=== PATIENT | female | born 1935 | race Caucasian/White ===

== ENCOUNTER 2016-09-25 17:46 | Inpatient (IN) | payer MEDICARE, OTHER ==
[~2016-09-25] VITALS: Ht 152.4 cm; Wt 53.4 kg
[2016-09-25] MEDS ORDERED: ONDANSETRON 4 MG INJ IV STA (17:51)
[2016-09-25] MEDS ORDERED: SOD CHLORIDE 0.9% 1,000 ML IV STA (17:51)
[2016-09-25 18:06] LABS: ADD SCAN DIFF NO
[2016-09-25 18:08] LABS: BASOPHILS % 0.5 % (0.0-2.0); EOSINOPHILS # 0.2 10^3/ul (0.0-0.5); EOSINOPHILS % 2.3 % (0.0-7.0); HEMATOCRIT 41.9 % (37.0-47.0); HEMOGLOBIN 13.5 g/dl (12.0-16.0); LYMPHOCYTES # 2.5 10^3/ul (0.8-2.9); LYMPHOCYTES % 29.7 % (15.0-51.0); MEAN CORPUSCULAR HEMOGLOBIN 29.1 pg (29.0-33.0); MEAN CORPUSCULAR HGB CONC 32.2 g/dl (32.0-37.0); MEAN CORPUSCULAR VOLUME 90.3 fl (82.0-101.0); MEAN PLATELET VOLUME 9.1 fl (7.4-10.4); MONOCYTE # 0.8 10^3/ul (0.3-0.9); MONOCYTES % 9.5 % (0.0-11.0); NEUTROPHIL # 4.9 10^3/ul (1.6-7.5); NEUTROPHILS % 57.6 % (39.0-77.0); PLATELET COUNT 322 10^3/UL (140-415); RED BLOOD COUNT 4.64 10^6/ul (4.20-5.40); RED CELL DISTRIBUTION WIDTH 13.7 % (11.5-14.5); WHITE BLOOD COUNT 8.6 10^3/ul (4.8-10.8)
[2016-09-25 18:23] LABS: ALBUMIN 4.4 g/dl (3.3-4.9); CHLORIDE 97 mmol/L (97-110)
[2016-09-25 18:24] LABS: POTASSIUM 4.1 mmol/L (3.5-5.1); SODIUM 137 mmol/L (135-144)
[2016-09-25 18:26] LABS: ALANINE AMINOTRANSFERASE 21 IU/L (13-69); ALKALINE PHOSPHATASE 60 IU/L (42-121); ANION GAP 17 (8-16); ASPARTATE AMINO TRANSFERASE 33 IU/L (15-46); BILIRUBIN,INDIRECT 0.1 mg/dl (0-1.1); BILIRUBIN,TOTAL 0.1 mg/dl (0.2-1.3); BLOOD UREA NITROGEN 29 mg/dl (7-20); CARBON DIOXIDE 27 mmol/L (21-31); CREATININE 0.98 mg/dl (0.44-1.00); GLUCOSE 87 mg/dl (70-220); TOTAL PROTEIN 8.8 g/dl (6.1-8.1)
[2016-09-25 18:27] LABS: CALCIUM 9.8 mg/dl (8.4-10.2)
[2016-09-25] MEDS ORDERED: DEXTROSE 50% 50 ML SYRINGE ONE (18:38)
[2016-09-25 18:59] LABS: TROPONIN-I < 0.012 ng/ml (0.00-0.12)
[2016-09-25] MEDS ORDERED: DEXTROSE 50% 50 ML SYRINGE IV ONE ×2 (19:00→21:00)
[2016-09-25] MEDS ORDERED: DEXTROSE 5%-0.9% NACL 1,000 ML IV SCH (21:00)
[2016-09-25] MEDS ORDERED: ACETAMINOPHEN 325 MG TAB PO PRN (21:30)
[2016-09-25] MEDS ORDERED: ONDANSETRON 4 MG INJ IV PRN (21:30)
--- NOTE | 2016-09-25 23:00 | ERA ---
ER Documentation Chief Complaint Date/Time DATE: 09/25/16 TIME: 22:52 Chief Complaint HYPOGLYCEMIA AT HOME ~ 30'S; ALOC HPI 81-year-old female presents for acute altered mental status. The patient was more weak than usual and seemed more demented than usual according to her adult daycare center called her sister. She was transferred to the ER for evaluation. Paramedics checked her sugar and it was in the 30s and Route. They did give her IV dextrose. Patient was initially answering questions well in the emergency room. She stated that she did not remember what happened but she had felt fine earlier in the day. She denied any pain or nausea. Bedside [employer] packaging sales was used. Patient is not diabetic according to her and her family. She does not take any medications that might lower her sugar. ROS All systems reviewed and are negative except as per history of present illness. PMhx/Soc History of Surgery: No Anesthesia Reaction: No Hx Neurological Disorder: No Hx Respiratory Disorders: No Hx Cardiac Disorders: No Hx Psychiatric Problems: No Hx Miscellaneous Medical Probl: No Hx Alcohol Use: No Hx Substance Use: No Hx Tobacco Use: No Smoking Status: Never smoker Physical Exam Vitals Vital Signs Date Time Temp Pulse Resp B/P Pulse Ox O2 Delivery O2 Flow Rate FiO2 09/25/16 17:49 97.7 103 18 159/84 98 Physical Exam Const: [] Mild distress, appears slightly confused. Head: Atraumatic Eyes: Normal Conjunctiva ENT: Normal External Ears, Nose and Mouth. Neck: Full range of motion..~ No meningismus. Resp: Clear to auscultation bilaterally Cardio: Regular while tachycardia no murmurs Abd: Soft, non tender, non distended. Normal bowel sounds Skin: No petechiae or rashes Back: No midline or flank tenderness Ext: No cyanosis, or edema Neur: Awake and alert and oriented 2, uncertain of day or month, cranial nerves II through XII intact, cerebellar finger to nose intact. Gait not tested Psych: Normal Mood and Affect Result Diagram: 09/25/16 1740 09/25/16 1740 Results 24 hrs Laboratory Tests Test 09/25/16 17:40 09/25/16 18:34 09/25/16 18:36 09/25/16 19:05 White Blood Count 8.610^3/ul Red Blood Count 4.6410^6/ul Hemoglobin 13.5g/dl Hematocrit 41.9% Mean Corpuscular Volume 90.3fl Mean Corpuscular Hemoglobin 29.1pg Mean Corpuscular Hemoglobin Concent 32.2g/dl Red Cell Distribution Width 13.7% Platelet Count 24987^3/UL Mean Platelet Volume 9.1fl Neutrophils % 57.6% Lymphocytes % 29.7% Monocytes % 9.5% Eosinophils % 2.3% Basophils % 0.5% Nucleated Red Blood Cells % 0.0/100WBC Neutrophils # 4.910^3/ul Lymphocytes # 2.510^3/ul Monocytes # 0.810^3/ul Eosinophils # 0.210^3/ul Basophils # 0.010^3/ul Nucleated Red Blood Cells # 0.010^3/ul Sodium Level 137mmol/L Potassium Level 4.1mmol/L Chloride Level 97mmol/L Carbon Dioxide Level 27mmol/L Anion Gap 17 Blood Urea Nitrogen 29mg/dl Creatinine 0.98mg/dl Glucose Level 87mg/dl Calcium Level 9.8mg/dl Total Bilirubin 0.1mg/dl Direct Bilirubin 0.00mg/dl Indirect Bilirubin 0.1mg/dl Aspartate Amino Transf (AST/SGOT) 33IU/L Alanine Aminotransferase (ALT/SGPT) 21IU/L Alkaline Phosphatase 60IU/L Troponin I < 0.012ng/ml Total Protein 8.8g/dl Albumin 4.4g/dl Globulin 4.40g/dl Albumin/Globulin Ratio 1.00 Lipase 283U/L Bedside Glucose 27mg/dL 30mg/dL 127mg/dL Test 09/25/16 20:52 09/25/16 21:42 Bedside Glucose 38mg/dL 141mg/dL Current Medications Medications (Trade) Dose Ordered Sig/Joan Route PRN Reason Start Time Stop Time Status Last Admin Dose Admin Sodium Chloride (NS) 1,000 ml @ 1,000 mls/hr Q1H STAT IV 09/25/16 17:51 09/25/16 18:50 DC 09/25/16 18:10 Ondansetron HCl (Zofran Inj) 4 mg ONCE STAT IV 09/25/16 17:51 09/25/16 17:53 DC 09/25/16 18:10 Dextrose (D50w Syringe) 50 ml ONCE ONCE IV 09/25/16 19:00 09/25/16 19:01 DC 09/25/16 18:41 Dextrose (D50w Syringe) 50 ml STK-MED ONCE .ROUTE 09/25/16 18:38 09/25/16 18:39 DC Dextrose 50 ml 50 ml ONCE ONCE IV 09/25/16 21:00 09/25/16 21:01 DC 09/25/16 20:57 Dextrose/Sodium Chloride (D5-NS) 1,000 ml @ 150 mls/hr Q6H40M IV 09/25/16 21:00 09/25/16 21:06 Ondansetron HCl (Zofran Inj) 4 mg ER BRIDGE PRN IV NAUSEA AND/OR VOMITING 09/25/16 21:30 09/26/16 21:29 Acetaminophen (Tylenol Tab) 650 mg ER BRIDGE PRN PO MILD PAIN/FEVER 09/25/16 21:30 09/26/16 21:29 Procedures/MDM Idiopathic refractory hypoglycemia. Patient sugar continued to drop to dangerous levels in spite of not being any sugar lowering medications. After patient arrived mental status that improved. It did decrease and her sugar had dropped again into the 30s. She was given amp of D50 and her sugar was carefully monitored. She was again quickly dropped in the 30s at which point she was given another amp of D50 and D5 normal saline infusion was started. She is vital signs initially unstable of otherwise stabilized. At this point there is concern for other sugar lowering processes such as possible insulinoma or other. No signs of acute infection yet. Urine has not been obtained. This point sugar is been holding stable although the patient needs to be admitted and closely monitored and do not believe she needs intensive care unit currently. Spoke with Dr. Manuel who will be admitting the patient and agrees with telemetry. EKG interpretation: Sinus tachycardia rate of 103, normal axis, no ST-T wave changes concerning for acute ischemia. Normal EKG except for increased rate. burr mill operator interpretation: Initial sinus tachycardia followed by normal sinus rhythm without arrhythmia Critical care time 33 minutes: This includes treatment of refractory hypoglycemia with extremely low sugars, is a multiple doses of dextrose to maintain adequate blood sugar to preserve life and brain function, use of D5 drip, multiple visits patient's bedside reassess her neuro status, chart review , discussion with admitting doctor discussion with family. This does not include any billable procedures Departure Diagnosis: Primary Impression: Hypoglycemia Additional Impression: Altered mental status Condition: Serious SALLY FUCHS DO Sep 25, 2016 23:00
[2016-09-25 23:24] LABS: URINE BLOOD (Dip) POC Negative (NEGATIVE)
[2016-09-25 23:48] VITALS: Ht 152.4 cm; Wt 53.4 kg
[2016-09-26] VITALS (12 sets, daily range): BP systolic 125–145; BP diastolic 61–69; PULSE 85–110; RESP 17–20
[2016-09-26 00:18] LABS: ADD UMIC NO; URINE BILIRUBIN (Dip) NEGATIVE (NEGATIVE); URINE BLOOD (Dip) NEGATIVE (NEGATIVE); URINE COLOR LT. YELLOW (YELLOW); URINE KETONES (Dip) NEGATIVE (NEGATIVE); URINE LEUKOCYTE ESTERASE (Dip) NEGATIVE (NEGATIVE); URINE NITRITE (Dip) NEGATIVE (NEGATIVE); URINE TOTAL PROTEIN (Dip) NEGATIVE (NEGATIVE); URINE UROBILINOGEN (Dip) 0.2 E.U./dL (0.1-1.0)
[2016-09-26] MEDS ORDERED: ONDANSETRON 4 MG INJ IV PRN (01:30)
[2016-09-26] MEDS: DEXTROSE 5%-0.9% NACL 1,000 ML IV SCH ×5 (04:17→20:39)
[2016-09-26] MEDS: ACCU-CHEK XX SCH ×5 (05:12→20:42)
[2016-09-26 07:36] LABS: ADD SCAN DIFF NO
[2016-09-26 07:39] LABS: BASOPHILS % 0.6 % (0.0-2.0); EOSINOPHILS # 0.2 10^3/ul (0.0-0.5); EOSINOPHILS % 3.2 % (0.0-7.0); HEMATOCRIT 38.8 % (37.0-47.0); LYMPHOCYTES % 29.6 % (15.0-51.0); MEAN CORPUSCULAR HEMOGLOBIN 28.3 pg (29.0-33.0); MEAN CORPUSCULAR HGB CONC 30.9 g/dl (32.0-37.0); MEAN CORPUSCULAR VOLUME 91.5 fl (82.0-101.0); MEAN PLATELET VOLUME 9.3 fl (7.4-10.4); MONOCYTE # 0.6 10^3/ul (0.3-0.9); MONOCYTES % 9.4 % (0.0-11.0); NEUTROPHIL # 3.8 10^3/ul (1.6-7.5); NEUTROPHILS % 56.9 % (39.0-77.0); PLATELET COUNT 288 10^3/UL (140-415); RED BLOOD COUNT 4.24 10^6/ul (4.20-5.40); RED CELL DISTRIBUTION WIDTH 13.9 % (11.5-14.5); WHITE BLOOD COUNT 6.6 10^3/ul (4.8-10.8)
[2016-09-26 08:11] LABS: ALBUMIN 3.7 g/dl (3.3-4.9); BILIRUBIN,INDIRECT 0.2 mg/dl (0-1.1); BILIRUBIN,TOTAL 0.2 mg/dl (0.2-1.3); CALCIUM 8.7 mg/dl (8.4-10.2); CHOL/HDL RATIO 3.6 RATIO; CREATININE 0.69 mg/dl (0.44-1.00); POTASSIUM 4.7 mmol/L (3.5-5.1); TOTAL PROTEIN 7.4 g/dl (6.1-8.1)
--- NOTE | 2016-09-26 08:35 | HP ---
DATE OF ADMISSION: 09/25/2016 TIME SEEN: 2300 CHIEF COMPLAINT: Altered mentation. ILLNESS: The patient is an 81-year-old female with no significant past medical history who was vee sferred from a daycare center for altered mentation and weakness. Reportedly, the patient appeared more weaker than usual and had an acute onset of altered mentation. When EMS arrived, her blood glu cose was in the 30s, for which she was given IV dextrose. When the patient appeared in the ER, she was stable and answering questions appropriately but she stated she did not remember what happened w hen she was being brought to the ER, but prior to that, she stated she was feeling her usual normal self. Note that the patient is Maltese speaking, so information is obtained through translation. When she presented to the ER her glucose on the BMP was 87, but repeat point of care glucose was 27 for which she was given D50 and then placed on IV fluid with dextrose. Later on tonight while she w as still in the ER, her blood glucose initially went up to 127, then dropped to 38, so it has been f luctuating, but the past 2 readings have been 141 and 106. The patient does not take any medication , so no antidiabetic medication including insulin was given to the patient. She denied any chest pa in, shortness of breath, abdominal pain, lightheadedness, dizziness. REVIEW OF SYSTEMS: A 12-point review of systems was performed and negative as mentioned in HPI. PAST MEDICAL HISTORY: Denies. SOCIAL HISTORY: Denies history of tobacco, alcohol or illicit drug use. ALLERGIES: NO KNOWN DRUG ALLERGIES. HOME MEDICATIONS: None. PHYSICAL EXAMINATION VITAL SIGNS: Stable. GENERAL: No acute distress. She is answering questions appropriately through egg trayer. HEENT: No obvious head deformity. Pupils are reactive to light. Extraocular muscles intact. CARDIOVASCULAR: Regular rate and rhythm with no extra sounds. LUNGS: Clear. ABDOMEN: Soft, nontender, nondistended. Positive bowel sounds. EXTREMITIES: No edema. NEUROLOGIC: No focal deficits. LABORATORY: BUN 29 and fluctuating blood glucose, otherwise CBC and CMP are within normal limits. IMPRESSION: 1. Hypoglycemia, currently unknown etiology. 2. Altered mentation, secondary to above. PLAN: Continue telemetry monitoring. We will continue frequent Accu-Cheks. She will be continued on IV fluids with dextrose. We will check for insulin C peptide protein, cortisol and also A1c. W e will consider abdominal MRI to evaluate for insulinoma if she continues to have this problem. We will place an endocrine consult. If there is any additional concern for a possible adrenal insuffic iency we will also check her ACTH. For now she will closely be monitored with IV fluid with dextros e and we will await endocrine evaluation. Further workup and management per clinical course. Dictated By: BONNIE OROZCO/KATHIE Conf#: [id number] DID#: [id number]
[2016-09-26 08:41] LABS: THYROID STIMULATING HORMONE 0.492 MIU/L (0.465-4.680)
--- NOTE | 2016-09-26 12:40 | CONS ---
Date/Time of Note Date/Time of Note DATE: 09/26/16 TIME: 12:22 Assessment/Plan Assessment/Plan Problems: (1) Hypoglycemia Status: Acute Comment: Etiology at this time unclear. Consider most likely that pt. was either accidently or on purpose administered hypoglycemic med (sulfonylurea/ meglitinide) or insulin. Since pt. does take Rx meds, it is possible that pharmacy administered wrong meds. Will check sulfonylurea/meglitinide screen. Other possible cause would be reactive hypoglycemia. If this is the cause, would expect it to recur following multiple mixed meals. Another possible cause is insulinoma. If this is the cause, would expect it to occur when fasting. Finally consider paraneoplastic syndrome w/ high IGF-2 levels. This would be most rare. For now, have sent sulfonylurea/meglitinide screen. Would wean pt. off of support dextrose and wait to see if hypoglycemia recurs. Consultation Date/Type/Reason Admit Date/Time Sep 25, 2016 at 21:25 Date of Consultation: Sep 26, 2016 Type of Consultation: Endocrinology Reason for Consultation Hypoglycemia Referring Provider: TERRI BOYCE Hx of Present Illness 81 y/o Arm F w/ h/o HTN and dementia in H until yesterday at adult day care [place] [facility] when she developed acute onset of weakness and AMS. Workers there called 911 and EMS arrived and found her BG to be in the 30's. Treated pt. w/ IV dextrose. However, on arriving in ER again BG was 27-30 mg/dL. Pt. treated w/ IV dextrose. In ER w/ senior net developer architect pt. reported that she felt fine earlier in the day and did not have any idea what could be going on. Although med reconciliation here is blank, d/w daughter reveals pt. takes at least 2 Rx meds , toprol and diovan. Subjective hx not possible: pt non-verbal Past Medical History Medical History: hypertension, other (dementia, AV maxine reentry tachycardia, TIA, depression) Past Surgical History Past Surgical Hx: other (cataracts, AV maxine ablation) Family History Significant Family History: no pertinent family hx Social History b. 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, , 4 children, lives w/ daughter and has caregiver Alcohol Use: none Smoking Status: Never smoker Drug Use: none Exam/Review of Systems Vital Signs Vitals VS - Last 72 Hours, by Label Date Time Temp Pulse Resp B/P Pulse Ox O2 Delivery O2 Flow Rate FiO2 09/26/16 12:06 96 09/26/16 11:46 98.0 98 18 125/65 97 09/26/16 08:15 97.8 94 18 140/65 98 09/26/16 08:05 85 09/26/16 04:21 98.7 93 20 133/69 98 09/26/16 04:12 87 09/26/16 00:06 96 09/26/16 00:02 98.1 94 20 133/61 96 09/25/16 23:15 91 14 126/69 99 Room Air 09/25/16 21:30 90 16 113/57 98 Room Air 09/25/16 19:30 90 15 118/62 99 Room Air 09/25/16 17:49 97.7 103 18 159/84 98 Vital Signs Date Time Temp Pulse Resp B/P Pulse Ox O2 Delivery O2 Flow Rate FiO2 09/26/16 12:06 96 09/26/16 11:46 98.0 18 125/65 97 09/25/16 23:15 Room Air Intake and Output 09/25/16 09/25/16 09/26/16 15:00 23:00 07:00 Intake Total 800 ml Balance 800 ml Exam Constitutional: alert, oriented, well developed Psych: nl mood/affect, no complaints Eyes: EOMI, PERRL, nl conjunctiva, nl lids, nl sclera ENMT: mucosa pink and moist, nl external ears & nose Neck: non-tender, supple, No bruits, No masses, No thyromegaly Respiratory: clear to auscultation, normal air movement Cardiovascular: nl pulses, regular rate and rhythm, No edema, No murmurs/extra sounds, No rub Gastrointestinal: bowel sounds, nl liver, spleen, non-tender, soft, No mass, No rebound or guarding Musculoskeletal: nl extremities to inspection Extremities: normal pulses, No clubbing, No cyanosis, No edema Neurological: CLINICAL TRIALS MANAGER II-XII intact, nl mental status, nl speech, nl strength Additional Comments Bedside Glucose - 72 Hours Test 09/25/16 18:34 09/25/16 18:36 09/25/16 19:05 09/25/16 20:52 Bedside Glucose 27mg/dL (70-220) *L 30mg/dL (70-220) *L 127mg/dL (70-220) 38mg/dL (70-220) *L Test 09/25/16 21:42 09/25/16 23:04 09/25/16 23:45 09/26/16 00:26 Bedside Glucose 141mg/dL (70-220) 106mg/dL (70-220) 81mg/dL (70-220) 97mg/dL (70-220) Test 09/26/16 04:20 09/26/16 04:52 09/26/16 05:08 09/26/16 07:54 Bedside Glucose 59mg/dL (70-220) L 75mg/dL (70-220) 87mg/dL (70-220) 78mg/dL (70-220) Results Result Diagram: 09/26/16 0613 09/26/16 0613 Results 24 hrs Laboratory Tests Test 09/25/16 17:40 09/25/16 18:34 09/25/16 18:36 09/25/16 19:05 White Blood Count 8.6 Red Blood Count 4.64 Hemoglobin 13.5 Hematocrit 41.9 Mean Corpuscular Volume 90.3 Mean Corpuscular Hemoglobin 29.1 Mean Corpuscular Hemoglobin Concent 32.2 Red Cell Distribution Width 13.7 Platelet Count 322 Mean Platelet Volume 9.1 Neutrophils % 57.6 Lymphocytes % 29.7 Monocytes % 9.5 Eosinophils % 2.3 Basophils % 0.5 Nucleated Red Blood Cells % 0.0 Neutrophils # 4.9 Lymphocytes # 2.5 Monocytes # 0.8 Eosinophils # 0.2 Basophils # 0.0 Nucleated Red Blood Cells # 0.0 Sodium Level 137 Potassium Level 4.1 Chloride Level 97 Carbon Dioxide Level 27 Anion Gap 17 H Blood Urea Nitrogen 29 H Creatinine 0.98 Glucose Level 87 Calcium Level 9.8 Total Bilirubin 0.1 L Direct Bilirubin 0.00 Indirect Bilirubin 0.1 Aspartate Amino Transf (AST/SGOT) 33 Alanine Aminotransferase (ALT/SGPT) 21 Alkaline Phosphatase 60 Troponin I < 0.012 Total Protein 8.8 H Albumin 4.4 Globulin 4.40 H Albumin/Globulin Ratio 1.00 Lipase 283 Bedside Glucose 27 *L 30 *L 127 Test 09/25/16 20:52 09/25/16 21:42 09/25/16 23:04 09/25/16 23:15 Bedside Glucose 38 *L 141 106 Urine Color LT. YELLOW Urine Clarity CLEAR Urine pH 6.0 Urine Specific [place] 1.015 Urine Ketones NEGATIVE Urine Nitrite NEGATIVE Urine Bilirubin NEGATIVE Urine Urobilinogen 0.2 E.U./dL Urine Leukocyte Esterase NEGATIVE Urine Hemoglobin NEGATIVE Urine Glucose 0.1% H Urine Total Protein NEGATIVE Test 09/25/16 23:24 09/25/16 23:45 09/26/16 00:26 09/26/16 04:20 Bedside Urine pH (LAB) 6.0 Bedside Urine Protein (LAB) Negative Bedside Urine Glucose (UA) 0.1% H Bedside Urine Ketones (LAB) Negative Bedside Urine Blood Negative Bedside Urine Nitrite (LAB) Negative Bedside Urine Leukocyte Esterase (L Negative Bedside Glucose 81 97 59 L Test 09/26/16 04:52 09/26/16 05:08 09/26/16 06:13 09/26/16 07:54 Bedside Glucose 75 87 78 White Blood Count 6.6 # Red Blood Count 4.24 Hemoglobin 12.0 Hematocrit 38.8 Mean Corpuscular Volume 91.5 Mean Corpuscular Hemoglobin 28.3 L Mean Corpuscular Hemoglobin Concent 30.9 L Red Cell Distribution Width 13.9 Platelet Count 288 Mean Platelet Volume 9.3 Neutrophils % 56.9 Lymphocytes % 29.6 Monocytes % 9.4 Eosinophils % 3.2 Basophils % 0.6 Nucleated Red Blood Cells % 0.0 Neutrophils # 3.8 Lymphocytes # 2.0 Monocytes # 0.6 Eosinophils # 0.2 Basophils # 0.0 Nucleated Red Blood Cells # 0.0 Sodium Level 137 Potassium Level 4.7 Chloride Level 106 Carbon Dioxide Level 26 Anion Gap 10 # Blood Urea Nitrogen 15 # Creatinine 0.69 Glucose Level 62 #L Hemoglobin A1c 5.4 Calcium Level 8.7 Total Bilirubin 0.2 Direct Bilirubin 0.00 Indirect Bilirubin 0.2 Aspartate Amino Transf (AST/SGOT) 33 Alanine Aminotransferase (ALT/SGPT) 20 Alkaline Phosphatase 55 Total Protein 7.4 # Albumin 3.7 Globulin 3.70 H Albumin/Globulin Ratio 1.00 Triglycerides Level 51 Cholesterol Level 195 LDL Cholesterol, Calculated 132 HDL Cholesterol 53 Cholesterol/HDL Ratio 3.6 Thyroid Stimulating Hormone (TSH) 0.492 Random Cortisol 15.5 Medications Medications Current Medications Dextrose/Sodium Chloride (D5-NS) 1,000 ml @ 150 mls/hr Q6H40M IV Last administered on 09/26/16 10:12; Admin Dose 150 MLS/HR; Start 09/26/16 at 01:30 Ondansetron HCl (Zofran Inj) 4 mg Q6H PRN IV NAUSEA AND/OR VOMITING; Start at 01:30 Acetaminophen (Tylenol Tab) 650 mg Q6H PRN PO PAIN AND OR ELEVATED TEMP; Start 09/26/16 at 01:30 Diagnostic Test (Pha) (Accu-Chek) 1 ea Q4 XX Last administered on 09/26/16 09: 00; Admin Dose 1 EA; Start 09/26/16 at 05:00 MARY RAGLAND MD Sep 26, 2016 12:33
--- NOTE | 2016-09-26 14:56 | PN ---
Date/Time of Note Date/Time of Note DATE: 09/26/16 TIME: 14:53 Assessment/Plan VTE Prophylaxis VTE Prophylaxis Intervention: LMWH Lines/Catheters IV Catheter Type (from Nrs): Peripheral IV Urinary Cath still in place: Yes Reason Cath still needed: other (indicate) Assessment/Plan Chief Complaint/Hosp Course S: still w low bg; non focal; demented, but follows 1 step commands O:vss PE no pallor/ droop/ adenopathy s1s2 reg; no m/r/g ctab bs+ nt nd no r/r/g no edema non focal A/P 1. Ac metabolic encephalopathy/ hypoglycemia; stable, dc po meds. may need D10 drip. 2. Dm/ metabolic syndrome 3. Dementia 4. Ftt 5. Problems: Exam/Review of Systems Vital Signs Vitals Vital Signs Date Time Temp Pulse Resp B/P Pulse Ox O2 Delivery O2 Flow Rate FiO2 09/26/16 12:06 96 09/26/16 11:46 98.0 18 125/65 97 09/25/16 23:15 Room Air Intake and Output 09/25/16 09/25/16 09/26/16 15:00 23:00 07:00 Intake Total 800 ml Balance 800 ml Results Result Diagram: 09/26/16 0613 09/26/16 0613 Results 24 hrs Laboratory Tests Test 09/25/16 17:40 09/25/16 18:34 09/25/16 18:36 09/25/16 19:05 White Blood Count 8.6 Red Blood Count 4.64 Hemoglobin 13.5 Hematocrit 41.9 Mean Corpuscular Volume 90.3 Mean Corpuscular Hemoglobin 29.1 Mean Corpuscular Hemoglobin Concent 32.2 Red Cell Distribution Width 13.7 Platelet Count 322 Mean Platelet Volume 9.1 Neutrophils % 57.6 Lymphocytes % 29.7 Monocytes % 9.5 Eosinophils % 2.3 Basophils % 0.5 Nucleated Red Blood Cells % 0.0 Neutrophils # 4.9 Lymphocytes # 2.5 Monocytes # 0.8 Eosinophils # 0.2 Basophils # 0.0 Nucleated Red Blood Cells # 0.0 Sodium Level 137 Potassium Level 4.1 Chloride Level 97 Carbon Dioxide Level 27 Anion Gap 17 H Blood Urea Nitrogen 29 H Creatinine 0.98 Glucose Level 87 Calcium Level 9.8 Total Bilirubin 0.1 L Direct Bilirubin 0.00 Indirect Bilirubin 0.1 Aspartate Amino Transf (AST/SGOT) 33 Alanine Aminotransferase (ALT/SGPT) 21 Alkaline Phosphatase 60 Troponin I < 0.012 Total Protein 8.8 H Albumin 4.4 Globulin 4.40 H Albumin/Globulin Ratio 1.00 Lipase 283 Bedside Glucose 27 *L 30 *L 127 Test 09/25/16 20:52 09/25/16 21:42 09/25/16 23:04 09/25/16 23:15 Bedside Glucose 38 *L 141 106 Urine Color LT. YELLOW Urine Clarity CLEAR Urine pH 6.0 Urine Specific [place] 1.015 Urine Ketones NEGATIVE Urine Nitrite NEGATIVE Urine Bilirubin NEGATIVE Urine Urobilinogen 0.2 E.U./dL Urine Leukocyte Esterase NEGATIVE Urine Hemoglobin NEGATIVE Urine Glucose 0.1% H Urine Total Protein NEGATIVE Test 09/25/16 23:24 09/25/16 23:45 09/26/16 00:26 09/26/16 04:20 Bedside Urine pH (LAB) 6.0 Bedside Urine Protein (LAB) Negative Bedside Urine Glucose (UA) 0.1% H Bedside Urine Ketones (LAB) Negative Bedside Urine Blood Negative Bedside Urine Nitrite (LAB) Negative Bedside Urine Leukocyte Esterase (L Negative Bedside Glucose 81 97 59 L Test 09/26/16 04:52 09/26/16 05:08 09/26/16 06:13 09/26/16 07:54 Bedside Glucose 75 87 78 White Blood Count 6.6 # Red Blood Count 4.24 Hemoglobin 12.0 Hematocrit 38.8 Mean Corpuscular Volume 91.5 Mean Corpuscular Hemoglobin 28.3 L Mean Corpuscular Hemoglobin Concent 30.9 L Red Cell Distribution Width 13.9 Platelet Count 288 Mean Platelet Volume 9.3 Neutrophils % 56.9 Lymphocytes % 29.6 Monocytes % 9.4 Eosinophils % 3.2 Basophils % 0.6 Nucleated Red Blood Cells % 0.0 Neutrophils # 3.8 Lymphocytes # 2.0 Monocytes # 0.6 Eosinophils # 0.2 Basophils # 0.0 Nucleated Red Blood Cells # 0.0 Sodium Level 137 Potassium Level 4.7 Chloride Level 106 Carbon Dioxide Level 26 Anion Gap 10 # Blood Urea Nitrogen 15 # Creatinine 0.69 Glucose Level 62 #L Hemoglobin A1c 5.4 Calcium Level 8.7 Total Bilirubin 0.2 Direct Bilirubin 0.00 Indirect Bilirubin 0.2 Aspartate Amino Transf (AST/SGOT) 33 Alanine Aminotransferase (ALT/SGPT) 20 Alkaline Phosphatase 55 Total Protein 7.4 # Albumin 3.7 Globulin 3.70 H Albumin/Globulin Ratio 1.00 Triglycerides Level 51 Cholesterol Level 195 LDL Cholesterol, Calculated 132 HDL Cholesterol 53 Cholesterol/HDL Ratio 3.6 Thyroid Stimulating Hormone (TSH) 0.492 Random Cortisol 15.5 Test 09/26/16 13:07 09/26/16 14:35 Bedside Glucose 56 L 97 Medications Medications Current Medications Dextrose/Sodium Chloride (D5-NS) 1,000 ml @ 150 mls/hr Q6H40M IV Last administered on 09/26/16 10:12; Admin Dose 150 MLS/HR; Start 09/26/16 at 01:30 Ondansetron HCl (Zofran Inj) 4 mg Q6H PRN IV NAUSEA AND/OR VOMITING; Start at 01:30 Acetaminophen (Tylenol Tab) 650 mg Q6H PRN PO PAIN AND OR ELEVATED TEMP; Start 09/26/16 at 01:30 Diagnostic Test (Pha) (Accu-Chek) 1 ea Q4 XX Last administered on 09/26/16 14: 00; Admin Dose 1 EA; Start 09/26/16 at 05:00 RILEY MARCIAL MD Sep 26, 2016 14:56
[2016-09-27] VITALS (14 sets, daily range): BP systolic 112–171; BP diastolic 59–87; PULSE 72–130; RESP 17–21
[2016-09-27] MEDS: ACCU-CHEK XX SCH ×6 (01:01→20:33)
[2016-09-27] MEDS: DEXTROSE 5%-0.9% NACL 1,000 ML IV SCH (03:33)
[2016-09-27 07:33] LABS: ADD SCAN DIFF NO
[2016-09-27 07:36] LABS: BASOPHIL # 0.1 10^3/ul (0.0-0.1); BASOPHILS % 0.6 % (0.0-2.0); EOSINOPHILS # 0.2 10^3/ul (0.0-0.5); EOSINOPHILS % 1.9 % (0.0-7.0); HEMATOCRIT 37.1 % (37.0-47.0); HEMOGLOBIN 11.7 g/dl (12.0-16.0); LYMPHOCYTES # 1.9 10^3/ul (0.8-2.9); LYMPHOCYTES % 22.5 % (15.0-51.0); MEAN CORPUSCULAR HEMOGLOBIN 28.3 pg (29.0-33.0); MEAN CORPUSCULAR HGB CONC 31.5 g/dl (32.0-37.0); MEAN CORPUSCULAR VOLUME 89.8 fl (82.0-101.0); MEAN PLATELET VOLUME 9.6 fl (7.4-10.4); MONOCYTE # 0.9 10^3/ul (0.3-0.9); MONOCYTES % 10.1 % (0.0-11.0); NEUTROPHIL # 5.5 10^3/ul (1.6-7.5); NEUTROPHILS % 64.4 % (39.0-77.0); PLATELET COUNT 247 10^3/UL (140-415); RED BLOOD COUNT 4.13 10^6/ul (4.20-5.40); RED CELL DISTRIBUTION WIDTH 13.8 % (11.5-14.5); WHITE BLOOD COUNT 8.5 10^3/ul (4.8-10.8)
[2016-09-27 07:57] LABS: POTASSIUM 4.3 mmol/L (3.5-5.1)
[2016-09-27 07:59] LABS: CREATININE 0.59 mg/dl (0.44-1.00)
[2016-09-27 08:00] LABS: PHOSPHORUS 2.6 mg/dl (2.5-4.9)
[2016-09-27 08:01] LABS: CALCIUM 8.8 mg/dl (8.4-10.2); MAGNESIUM 1.6 mg/dl (1.7-2.5)
[2016-09-27] MEDS: ENOXAPARIN 30 MG/0.3 ML SYG SC SCH (09:31)
[2016-09-27] MEDS: ACETAMINOPHEN 325 MG TAB PO PRN (10:42)
[2016-09-27] MEDS ORDERED: MAGNESIUM SULFATE 2 GM/50 ML 50 ML IVPB ONE (11:00)
[2016-09-27] MEDS ORDERED: DEXTROSE 5%-0.45% NACL 1,000 ML IV SCH (13:00)
[2016-09-27] MEDS ORDERED: GLUCOSE GEL 15 GRAM TUBE BUCCAL PRN (13:30)
[2016-09-27] MEDS ORDERED: GLUCOSE GEL 15 GRAM TUBE PO PRN ×2 (13:30)
[2016-09-27] MEDS ORDERED: DEXTROSE 50% 50 ML SYRINGE IV PRN ×2 (13:30)
[2016-09-27] MEDS ORDERED: GLUCAGON 1 MG INJ IM PRN (13:30)
--- NOTE | 2016-09-27 13:37 | PN ---
DATE: 09/27/2016 DATE OF SERVICE: 09/27/2016 TIME OF EVALUATION: 11:30 a.m. SUBJECTIVE DATA: The patient does not have any more episodes of hypoglycemia. The patient's vital signs are stable. OBJECTIVE DATA: VITAL SIGNS: Temperature 99.0, pulse rate 100, respiratory rate 20, blood pressure 157/72, oxygen saturation 98% on room air. GENERAL: This is an 81-year-old female patient lying in bed in no apparent distress. HEENT: Head normocephalic and atraumatic. Eyes: Anicteric sclerae. Conjunctivae clear. ENT: Nasal septum is midline. Oral mucosa is moist. NECK: Supple. No JVD noticed. RESPIRATORY: Bilaterally clear to auscultation. No adventitious breath sounds. No use of accessory muscles of respiration. CARDIAC: Regular rate and rhythm. ABDOMEN: Soft, nontender and nondistended. Bowel sounds positive in all 4 quadrants. GENITOURINARY: Deferred. EXTREMITIES: No cyanosis, no clubbing, no edema. Peripheral pulses palpable. NEUROLOGIC: The patient is awake and alert. Primarily Georgian speaking. Confused as per nursing. LABORATORY AND DIAGNOSTIC DATA: WBC 8.5, hemoglobin 11.7, hematocrit 37.1, platelet count 247. Sodium 134, potassium 4.3, carbon dioxide 23, anion gap 12 , BUN 12, glucose 129, calcium 8.8, phosphorus 2.6, magnesia 1.6. ASSESSMENT AND PLAN: 1. Hypoglycemia. Etiology unclear. The patient currently on D5W. Blood sugars have been running good. We will gradually wean off dextrose and await to see if hypoglycemia occurs as per Endocrinology. 2. Dementia. Continue frequent reorientation. 3. Failure to thrive. Continue dietary supplements. 4. Essential hypertension. Continue antihypertensives. 5. History of cardiac arrhythmias, status post cardiac ablation. Continue to monitor cardiac rhythm. 6. Fluid, electrolytes and nutrition. Regular diet. 7. Deep venous thrombosis prophylaxis with subcutaneous Lovenox. 8. Gastrointestinal prophylaxis. Histamine-2 receptor blockers. PLAN: Continue management as per Endocrinology. Wean off D-5-W as per Endocrinology. The case was discussed with Dr. Ching. PAULINA CHING MD, AM/KATHIE Conf#: [id number] DID#: [id number]
[2016-09-27] MEDS: hydrALAzine 20 MG INJ IV PRN (17:11)
[2016-09-27] MEDS: ACARBOSE 50 MG TAB PO SCH (17:29)
--- NOTE | 2016-09-27 18:45 | CONS ---
Date/Time of Note Date/Time of Note DATE: 09/27/16 TIME: 18:42 Assessment/Plan Assessment/Plan Problems: (1) Hypoglycemia Status: Acute Comment: While waiting for sulfonylurea/meglitinide screen will empirically treat for reactive hypoglycemia which is most likely diagnosis. Will d/c IV dextrose, place on low-carb diet and add acarbose 25 mg qac to slow the uptake of glucose into the bloodstream, thus slowing the insulin response. Reeval tomorrow. If hypoglycemia recurs, will further evaluate. Consultation Date/Type/Reason Admit Date/Time Sep 25, 2016 at 21:25 Initial Consult Date 09/26/16 Type of Consultation: Endocrinology Reason for Consultation hypoglycemia Referring Provider: TERRI BOYCE 24 HR Interval Summary Subjective hx not possible: pt non-verbal Exam/Review of Systems Vital Signs Vitals VS - Last 72 Hours, by Label Date Time Temp Pulse Resp B/P Pulse Ox O2 Delivery O2 Flow Rate FiO2 09/27/16 16:08 98.0 79 20 164/87 98 09/27/16 16:03 114 09/27/16 12:03 110 09/27/16 11:55 99.0 108 20 157/72 98 09/27/16 08:00 94 09/27/16 07:42 98.6 97 20 157/74 98 09/27/16 04:29 98.4 98 18 164/78 95 09/27/16 04:18 101 09/27/16 00:13 92 09/27/16 00:00 98.2 100 17 153/ 96 09/26/16 20:10 110 09/26/16 20:00 99.1 105 17 145/69 97 09/26/16 16:10 97.8 96 18 129/68 98 09/26/16 16:09 95 09/26/16 12:06 96 09/26/16 11:46 98.0 98 18 125/65 97 09/26/16 08:15 97.8 94 18 140/65 98 09/26/16 08:05 85 09/26/16 04:21 98.7 93 20 133/69 98 09/26/16 04:12 87 09/26/16 00:06 96 09/26/16 00:02 98.1 94 20 133/61 96 09/25/16 23:15 91 14 126/69 99 Room Air 09/25/16 21:30 90 16 113/57 98 Room Air 09/25/16 19:30 90 15 118/62 99 Room Air 09/25/16 17:49 97.7 103 18 159/84 98 Vital Signs Date Time Temp Pulse Resp B/P Pulse Ox O2 Delivery O2 Flow Rate FiO2 09/27/16 16:08 98.0 79 20 164/87 98 09/25/16 23:15 Room Air Intake and Output 09/26/16 09/26/16 09/27/16 15:00 23:00 07:00 Intake Total 350 ml 1530 ml 100 ml Output Total 1400 ml 1000 ml Balance 350 ml 130 ml -900 ml Exam Constitutional: alert, frail Psych: nl mood/affect, no complaints Respiratory: clear to auscultation, normal air movement Cardiovascular: nl pulses, regular rate and rhythm, No edema, No murmurs/extra sounds, No rub Gastrointestinal: bowel sounds, nl liver, spleen, non-tender, soft, No mass, No rebound or guarding Musculoskeletal: nl extremities to inspection, nl gait and stance Extremities: normal pulses, No clubbing, No cyanosis, No edema 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, nl mental status, nl speech, nl strength Additional Comments Bedside Glucose - 72 Hours Test 09/25/16 18:34 09/25/16 18:36 09/25/16 19:05 09/25/16 20:52 Bedside Glucose 27mg/dL (70-220) *L 30mg/dL (70-220) *L 127mg/dL (70-220) 38mg/dL (70-220) *L Test 09/25/16 21:42 09/25/16 23:04 09/25/16 23:45 09/26/16 00:26 Bedside Glucose 141mg/dL (70-220) 106mg/dL (70-220) 81mg/dL (70-220) 97mg/dL (70-220) Test 09/26/16 04:20 09/26/16 04:52 09/26/16 05:08 09/26/16 07:54 Bedside Glucose 59mg/dL (70-220) L 75mg/dL (70-220) 87mg/dL (70-220) 78mg/dL (70-220) Test 09/26/16 12:49 09/26/16 13:07 09/26/16 14:35 09/26/16 17:26 Bedside Glucose 49mg/dL (70-220) *L 56mg/dL (70-220) L 97mg/dL (70-220) 106mg/dL (70-220) Test 09/26/16 20:41 09/27/16 00:21 09/27/16 05:27 09/27/16 08:10 Bedside Glucose 94mg/dL (70-220) 134mg/dL (70-220) 123mg/dL (70-220) 123mg/dL (70-220) Test 09/27/16 12:28 09/27/16 17:10 Bedside Glucose 128mg/dL (70-220) 133mg/dL (70-220) Results Result Diagram: 09/27/16 0640 09/27/16 0640 Results 24 hrs Laboratory Tests Test 09/26/16 20:41 09/27/16 00:21 09/27/16 05:27 09/27/16 06:40 Bedside Glucose 94 134 123 White Blood Count 8.5 # Red Blood Count 4.13 L Hemoglobin 11.7 L Hematocrit 37.1 Mean Corpuscular Volume 89.8 Mean Corpuscular Hemoglobin 28.3 L Mean Corpuscular Hemoglobin Concent 31.5 L Red Cell Distribution Width 13.8 Platelet Count 247 Mean Platelet Volume 9.6 Neutrophils % 64.4 Lymphocytes % 22.5 Monocytes % 10.1 Eosinophils % 1.9 Basophils % 0.6 Nucleated Red Blood Cells % 0.0 Neutrophils # 5.5 Lymphocytes # 1.9 Monocytes # 0.9 Eosinophils # 0.2 Basophils # 0.1 Nucleated Red Blood Cells # 0.0 Sodium Level 134 L Potassium Level 4.3 Chloride Level 103 Carbon Dioxide Level 23 Anion Gap 12 Blood Urea Nitrogen 12 Creatinine 0.59 Glucose Level 129 # Calcium Level 8.8 Phosphorus Level 2.6 Magnesium Level 1.6 L Test 09/27/16 08:10 09/27/16 12:28 09/27/16 17:10 Bedside Glucose 123 128 133 Medications Medications Current Medications Ondansetron HCl (Zofran Inj) 4 mg Q6H PRN IV NAUSEA AND/OR VOMITING; Start at 01:30 Acetaminophen (Tylenol Tab) 650 mg Q6H PRN PO PAIN AND OR ELEVATED TEMP Last administered on 09/27/16 10:42; Admin Dose 650 MG; Start 09/26/16 at 01:30 Enoxaparin Sodium (Lovenox) 30 mg DAILY SC Last administered on 09/27/16 09:31 ; Admin Dose 30 MG; Start 09/27/16 at 09:00 Famotidine (Pepcid) 20 mg HS PO ; Start 09/27/16 at 21:00 Hydralazine HCl (Apresoline) 10 mg Q6H PRN IV SBP>160 Last administered on 09/27 17:11; Admin Dose 10 MG; Start 09/27/16 at 13:00 Miscellaneous Information 1 ea NOTE XX ; Start 09/27/16 at 13:30 Glucose (Glutose) 15 gm Q15M PRN PO DECREASED GLUCOSE; Start 09/27/16 at 13:30 Glucose (Glutose) 22.5 gm Q15M PRN PO DECREASED GLUCOSE; Start 09/27/16 at 13: 30 Dextrose (D50w Syringe) 25 ml Q15M PRN IV DECREASED GLUCOSE; Start 09/27/16 at 13:30 Dextrose (D50w Syringe) 50 ml Q15M PRN IV DECREASED GLUCOSE; Start 09/27/16 at 13:30 Glucagon (Glucagen) 1 mg Q15M PRN IM DECREASED GLUCOSE; Start 09/27/16 at 13:30 Glucose (Glutose) 15 gm Q15M PRN BUCCAL DECREASED GLUCOSE; Start 09/27/16 at 13 :30 Diagnostic Test (Pha) (Accu-Chek) 1 ea 02 XX ; Start 09/28/16 at 02:00 MARY RAGLAND MD Sep 27, 2016 18:45
[2016-09-27] MEDS: FAMOTIDINE 20 MG TAB PO SCH (20:30)
[2016-09-28] VITALS (12 sets, daily range): BP systolic 137–166; BP diastolic 68–92; PULSE 94–112; RESP 18–20
[2016-09-28] MEDS: hydrALAzine 20 MG INJ IV PRN ×2 (00:31→08:37)
[2016-09-28] MEDS: ACCU-CHEK XX SCH ×5 (02:00→20:57)
[2016-09-28] MEDS: ACETAMINOPHEN 325 MG TAB PO PRN (02:04)
[2016-09-28 06:58] LABS: ADD SCAN DIFF NO
[2016-09-28 07:04] LABS: BASOPHILS % 0.4 % (0.0-2.0); EOSINOPHILS # 0.1 10^3/ul (0.0-0.5); EOSINOPHILS % 0.5 % (0.0-7.0); HEMATOCRIT 37.3 % (37.0-47.0); HEMOGLOBIN 12.1 g/dl (12.0-16.0); LYMPHOCYTES # 2.4 10^3/ul (0.8-2.9); LYMPHOCYTES % 23.1 % (15.0-51.0); MEAN CORPUSCULAR HEMOGLOBIN 28.3 pg (29.0-33.0); MEAN CORPUSCULAR HGB CONC 32.4 g/dl (32.0-37.0); MEAN CORPUSCULAR VOLUME 87.1 fl (82.0-101.0); MEAN PLATELET VOLUME 9.5 fl (7.4-10.4); MONOCYTE # 0.8 10^3/ul (0.3-0.9); MONOCYTES % 7.8 % (0.0-11.0); NEUTROPHIL # 7.1 10^3/ul (1.6-7.5); NEUTROPHILS % 67.9 % (39.0-77.0); PLATELET COUNT 298 10^3/UL (140-415); RED BLOOD COUNT 4.28 10^6/ul (4.20-5.40); RED CELL DISTRIBUTION WIDTH 13.6 % (11.5-14.5); WHITE BLOOD COUNT 10.4 10^3/ul (4.8-10.8)
[2016-09-28 07:30] LABS: MAGNESIUM 1.6 mg/dl (1.7-2.5); PHOSPHORUS 3.5 mg/dl (2.5-4.9)
[2016-09-28 07:31] LABS: CALCIUM 9.4 mg/dl (8.4-10.2); CREATININE 0.56 mg/dl (0.44-1.00); POTASSIUM 3.8 mmol/L (3.5-5.1)
[2016-09-28] MEDS: ACARBOSE 50 MG TAB PO SCH ×3 (08:36→17:06)
[2016-09-28] MEDS: ENOXAPARIN 30 MG/0.3 ML SYG SC SCH (08:39)
--- NOTE | 2016-09-28 15:56 | PN ---
Date/Time of Note Date/Time of Note DATE: 09/28/16 TIME: 15:24 Assessment/Plan VTE Prophylaxis VTE Prophylaxis Intervention: LMWH Lines/Catheters IV [facility]from [facility] Urinary Cath still in place: No Assessment/Plan Assessment/Plan 1. Hypoglycemia. Etiology unclear. improved, on acarbose, follow up with Endo 2. Dementia. Continue frequent reorientation. 3. Hypertension. metoprolol 4. Paroxysmal atrial fibrillation, h/o ablation therapy, metoprolol, normal range of TSH, check echo 5. Deep venous thrombosis prophylaxis with subcutaneous Lovenox. Subjective 24 Hr Interval Summary Free Text/Dictation no complaint runs of atrial fibrillation Exam/Review of Systems Vital Signs Vitals Vital Signs Date Time Temp Pulse Resp B/P Pulse Ox O2 Delivery O2 Flow Rate FiO2 09/28/16 12:00 110 09/28/16 11:58 98.3 20 159/74 97 09/28/16 01:30 Room Air Intake and Output 09/27/16 09/27/16 09/28/16 15:00 23:00 07:00 Intake Total 1050 ml 780 ml 300 ml Balance 1050 ml 780 ml 300 ml Exam Constitutional: alert, well developed Psych: nl mood/affect, no complaints Head: atraumatic, normocephalic Eyes: EOMI, PERRL, nl conjunctiva, nl lids ENMT: nl external ears & nose, nl lips & teeth, nl nasal mucosa & septum Neck: non-tender, supple Respiratory: clear to auscultation, normal air movement, No congested cough, No crackles/rales, No diminished breath sounds, No intercostal retraction, No labored breathing, No other, No respirations, No tactile fremitus, No wheezing Cardiovascular: nl pulses, regular rate and rhythm, No S3, No S4, No bruits, No diastolic murmur, No edema, No gallop, No irregular rhythm, No jugular venous distention (JVD), No murmurs/extra sounds, No other, No rub, No systolic murmur Gastrointestinal: nl liver, spleen, non-tender, soft, No ascites, No bowel sounds, No distended, No firm, No hepatomegaly, No mass , No other, No rebound or guarding, No splenomegaly, No surgical scars, No tender Musculoskeletal: nl extremities to inspection Extremities: normal pulses, No calf tenderness, No clubbing, No cyanosis, No edema, No other, No palpable cord, No pitting pedal edema, No tenderness 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, nl speech, nl strength Skin: nl turgor Lymph: nl lymph nodes Results Result Diagram: 09/28/16 0609/28/16 06 Results 24 hrs Laboratory Tests Test 09/27/16 17:10 09/27/16 20:28 09/28/16 01:52 09/28/16 06:01 Bedside Glucose 133 190 134 White Blood Count 10.4 # Red Blood Count 4.28 Hemoglobin 12.1 Hematocrit 37.3 Mean Corpuscular Volume 87.1 Mean Corpuscular Hemoglobin 28.3 L Mean Corpuscular Hemoglobin Concent 32.4 Red Cell Distribution Width 13.6 Platelet Count 298 # Mean Platelet Volume 9.5 Neutrophils % 67.9 Lymphocytes % 23.1 Monocytes % 7.8 Eosinophils % 0.5 Basophils % 0.4 Nucleated Red Blood Cells % 0.0 Neutrophils # 7.1 Lymphocytes # 2.4 Monocytes # 0.8 Eosinophils # 0.1 Basophils # 0.0 Nucleated Red Blood Cells # 0.0 Sodium Level 132 L Potassium Level 3.8 Chloride Level 100 Carbon Dioxide Level 25 Anion Gap 11 Blood Urea Nitrogen 14 Creatinine 0.56 Glucose Level 123 Calcium Level 9.4 Phosphorus Level 3.5 Magnesium Level 1.6 L Test 09/28/16 08:00 09/28/16 11:30 Bedside Glucose 110 110 Medications Medications Current Medications Ondansetron HCl (Zofran Inj) 4 mg Q6H PRN IV NAUSEA AND/OR VOMITING; Start at 01:30 Acetaminophen (Tylenol Tab) 650 mg Q6H PRN PO PAIN AND OR ELEVATED TEMP Last administered on 09/28/16 02:04; Admin Dose 650 MG; Start 09/26/16 at 01:30 Enoxaparin Sodium (Lovenox) 30 mg DAILY SC Last administered on 09/28/16 08:39 ; Admin Dose 30 MG; Start 09/27/16 at 09:00 Famotidine (Pepcid) 20 mg HS PO Last administered on 09/27/16 20:30; Admin Dose 20 MG; Start 09/27/16 at 21:00 Hydralazine HCl (Apresoline) 10 mg Q6H PRN IV SBP>160 Last administered on 09/28t 08:37; Admin Dose 10 MG; Start 09/27/16 at 13:00 Miscellaneous Information 1 ea NOTE XX ; Start 09/27/16 at 13:30 Glucose (Glutose) 15 gm Q15M PRN PO DECREASED GLUCOSE; Start 09/27/16 at 13:30 Glucose (Glutose) 22.5 gm Q15M PRN PO DECREASED GLUCOSE; Start 09/27/16 at 13: 30 Dextrose (D50w Syringe) 25 ml Q15M PRN IV DECREASED GLUCOSE; Start 09/27/16 at 13:30 Dextrose (D50w Syringe) 50 ml Q15M PRN IV DECREASED GLUCOSE; Start 09/27/16 at 13:30 Glucagon (Glucagen) 1 mg Q15M PRN IM DECREASED GLUCOSE; Start 09/27/16 at 13:30 Glucose (Glutose) 15 gm Q15M PRN BUCCAL DECREASED GLUCOSE; Start 09/27/16 at 13 :30 Diagnostic Test (Pha) (Accu-Chek) 1 ea 02 XX ; Start 09/28/16 at 02:00 PARMJIT CROW MD Sep 28, 2016 15:45
[2016-09-28] MEDS: ASPIRIN (EC) 81 MG TAB PO SCH (16:57)
[2016-09-28] MEDS: METOPROLOL 25 MG TAB PO SCH (20:57)
[2016-09-28] MEDS: FAMOTIDINE 20 MG TAB PO SCH (20:57)
--- NOTE | 2016-09-28 21:19 | CONS ---
Date/Time of Note Date/Time of Note DATE: 09/28/16 TIME: 21:14 Assessment/Plan Assessment/Plan Problems: (1) Hypoglycemia Status: Acute Comment: Pt. euglycemic since admit. Uncertain if this is due to effect of carb-controlled diet w/ acarbose at preventing reactive hypoglycemia vs. not currently fasting. If it is desired to find out, pt. must be intentionally fasted w/ glucose monitoring to see if hypoglycemia develops. Will d/w primary team. Consultation Date/Type/Reason Admit Date/Time Sep 25, 2016 at 21:25 Initial Consult Date 09/26/16 Type of Consultation: Endocrinology Reason for Consultation Hypoglycemia Referring Provider: TERRI BOYCE 24 HR Interval Summary Subjective hx not possible: pt non-verbal Exam/Review of Systems Vital Signs Vitals Vital Signs Date Time Temp Pulse Resp B/P Pulse Ox O2 Delivery O2 Flow Rate FiO2 09/28/16 20:16 98.6 110 18 150/72 97 09/28/16 01:30 Room Air Intake and Output 09/27/16 09/27/16 09/28/16 15:00 23:00 07:00 Intake Total 1050 ml 780 ml 300 ml Balance 1050 ml 780 ml 300 ml Exam Constitutional: alert, oriented, well developed Respiratory: clear to auscultation, normal air movement Cardiovascular: nl pulses, regular rate and rhythm, No edema, No murmurs/extra sounds, No rub Gastrointestinal: bowel sounds, nl liver, spleen, non-tender, soft, No mass, No rebound or guarding Musculoskeletal: nl extremities to inspection Extremities: normal pulses, No clubbing, No cyanosis, No edema 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, nl mental status, nl speech, nl strength Additional Comments Bedside Glucose - 72 Hours Test 09/25/16 21:42 09/25/16 23:04 09/25/16 23:45 09/26/16 00:26 Bedside Glucose 141mg/dL (70-220) 106mg/dL (70-220) 81mg/dL (70-220) 97mg/dL (70-220) Test 09/26/16 04:20 09/26/16 04:52 09/26/16 05:08 09/26/16 07:54 Bedside Glucose 59mg/dL (70-220) L 75mg/dL (70-220) 87mg/dL (70-220) 78mg/dL (70-220) Test 09/26/16 12:49 09/26/16 13:07 09/26/16 14:35 09/26/16 17:26 Bedside Glucose 49mg/dL (70-220) *L 56mg/dL (70-220) L 97mg/dL (70-220) 106mg/dL (70-220) Test 09/26/16 20:41 09/27/16 00:21 09/27/16 05:27 09/27/16 08:10 Bedside Glucose 94mg/dL (70-220) 134mg/dL (70-220) 123mg/dL (70-220) 123mg/dL (70-220) Test 09/27/16 12:28 09/27/16 17:10 09/27/16 20:28 09/28/16 01:52 Bedside Glucose 128mg/dL (70-220) 133mg/dL (70-220) 190mg/dL (70-220) 134mg/dL (70-220) Test 09/28/16 08:00 09/28/16 11:30 09/28/16 17:05 09/28/16 20:53 Bedside Glucose 110mg/dL (70-220) 110mg/dL (70-220) 111mg/dL (70-220) 113mg/dL (70-220) Results Result Diagram: 09/28/16 0601 09/28/16 0601 Results 24 hrs Laboratory Tests Test 09/28/16 01:52 09/28/16 06:01 09/28/16 08:00 09/28/16 11:30 Bedside Glucose 134 110 110 White Blood Count 10.4 # Red Blood Count 4.28 Hemoglobin 12.1 Hematocrit 37.3 Mean Corpuscular Volume 87.1 Mean Corpuscular Hemoglobin 28.3 L Mean Corpuscular Hemoglobin Concent 32.4 Red Cell Distribution Width 13.6 Platelet Count 298 # Mean Platelet Volume 9.5 Neutrophils % 67.9 Lymphocytes % 23.1 Monocytes % 7.8 Eosinophils % 0.5 Basophils % 0.4 Nucleated Red Blood Cells % 0.0 Neutrophils # 7.1 Lymphocytes # 2.4 Monocytes # 0.8 Eosinophils # 0.1 Basophils # 0.0 Nucleated Red Blood Cells # 0.0 Sodium Level 132 L Potassium Level 3.8 Chloride Level 100 Carbon Dioxide Level 25 Anion Gap 11 Blood Urea Nitrogen 14 Creatinine 0.56 Glucose Level 123 Calcium Level 9.4 Phosphorus Level 3.5 Magnesium Level 1.6 L Test 09/28/16 17:05 09/28/16 20:53 Bedside Glucose 111 113 Medications Medications Current Medications Ondansetron HCl (Zofran Inj) 4 mg Q6H PRN IV NAUSEA AND/OR VOMITING; Start at 01:30 Acetaminophen (Tylenol Tab) 650 mg Q6H PRN PO PAIN AND OR ELEVATED TEMP Last administered on 09/28/16 02:04; Admin Dose 650 MG; Start 09/26/16 at 01:30 Enoxaparin Sodium (Lovenox) 30 mg DAILY SC Last administered on 09/28/16 08:39 ; Admin Dose 30 MG; Start 09/27/16 at 09:00 Famotidine (Pepcid) 20 mg HS PO Last administered on 09/28/16 20:57; Admin Dose 20 MG; Start 09/27/16 at 21:00 Hydralazine HCl (Apresoline) 10 mg Q6H PRN IV SBP>160 Last administered on 09/28 08:37; Admin Dose 10 MG; Start 09/27/16 at 13:00 Miscellaneous Information 1 ea NOTE XX ; Start 09/27/16 at 13:30 Glucose (Glutose) 15 gm Q15M PRN PO DECREASED GLUCOSE; Start 09/27/16 at 13:30 Glucose (Glutose) 22.5 gm Q15M PRN PO DECREASED GLUCOSE; Start 09/27/16 at 13: 30 Dextrose (D50w Syringe) 25 ml Q15M PRN IV DECREASED GLUCOSE; Start 09/27/16 at 13:30 Dextrose (D50w Syringe) 50 ml Q15M PRN IV DECREASED GLUCOSE; Start 09/27/16 at 13:30 Glucagon (Glucagen) 1 mg Q15M PRN IM DECREASED GLUCOSE; Start 09/27/16 at 13:30 Glucose (Glutose) 15 gm Q15M PRN BUCCAL DECREASED GLUCOSE; Start 09/27/16 at 13 :30 Diagnostic Test (Pha) (Accu-Chek) 1 ea 02 XX ; Start 09/28/16 at 02:00 Metoprolol Tartrate (Lopressor) 25 mg BID PO Last administered on 09/28/16 20: 57; Admin Dose 25 MG; Start 09/28/16 at 21:00 Aspirin (Halfprin) 81 mg DAILY PO Last administered on 09/28/16 16:57; Admin Dose 81 MG; Start 09/28/16 at 16:00 MARY RAGLAND MD Sep 28, 2016 21:19
--- NOTE | 2016-09-28 23:23 | CONS ---
Date/Time of Note Date/Time of Note DATE: 09/28/16 TIME: 23:22 Assessment/Plan Assessment/Plan Additional Assessment/Plan AMS GEREALIZED WEAKNESS MONIOTR ON TELE CHECK ECHO BP STABLE Consultation Date/Type/Reason Admit Date/Time Sep 25, 2016 at 21:25 Hx of Present Illness The patient is an 81-year-old female with no significant past medical history who was transferred from a daycare center for altered mentation and weakness. Reportedly, the patient appeared more weaker than usual and had an acute onset of altered mentation. When EMS arrived, her blood glucose was in the 30s, for which she was given IV dextrose. When the patient appeared in the ER, she was stable and answering questions appropriately but she stated she did not remember what happened when she was being brought to the ER, but prior to that, she stated she was feeling her usual normal self. Note that the patient is [place] speaking, so information is obtained through translation. iN the ER her glucose on the BMP was 87, but repeat point of care glucose was 27 for which she was given D50 and then placed on IV fluid with dextrose. Later on tonight while she was still in the ER, her blood glucose initially went up to 127, then dropped to 38, so it has been fluctuating, but the past 2 readings have been 141 and 106. The patient does not take any medication, so no antidiabetic medication including insulin was given to the patient. She denied any chest pain, shortness of breath, abdominal pain, lightheadedness, dizziness. Constitutional: improved, no complaints Eyes: no complaints ENT: no complaints Respiratory: no complaints Cardiovascular: no complaints Gastrointestinal: no complaints Genitourinary: no complaints Musculoskeletal: no complaints Skin: no complaints Neurologic: no complaints Endocrine: no complaints Lymphatic: no complaints Psychological: nl mood/affect, no complaints Immunologic: no complaints Past Medical History Medical History: hypertension, other (dementia, AV maxine reentry tachycardia, TIA, depression) Past Surgical History Past Surgical Hx: other (cataracts, AV maxine ablation) Social History Alcohol Use: none Smoking Status: Never smoker Drug Use: none Exam/Review of Systems Vital Signs Vitals Vital Signs Date Time Temp Pulse Resp B/P Pulse Ox O2 Delivery O2 Flow Rate FiO2 09/28/16 20:16 98.6 110 18 150/72 97 09/28/16 01:30 Room Air Intake and Output 09/27/16 09/27/16 09/28/16 15:00 23:00 07:00 Intake Total 1050 ml 780 ml 300 ml Balance 1050 ml 780 ml 300 ml Results Result Diagram: 09/28/16 0601 09/28/16 0601 Results 24 hrs Laboratory Tests Test 09/28/16 01:52 09/28/16 06:01 09/28/16 08:00 09/28/16 11:30 Bedside Glucose 134 110 110 White Blood Count 10.4 # Red Blood Count 4.28 Hemoglobin 12.1 Hematocrit 37.3 Mean Corpuscular Volume 87.1 Mean Corpuscular Hemoglobin 28.3 L Mean Corpuscular Hemoglobin Concent 32.4 Red Cell Distribution Width 13.6 Platelet Count 298 # Mean Platelet Volume 9.5 Neutrophils % 67.9 Lymphocytes % 23.1 Monocytes % 7.8 Eosinophils % 0.5 Basophils % 0.4 Nucleated Red Blood Cells % 0.0 Neutrophils # 7.1 Lymphocytes # 2.4 Monocytes # 0.8 Eosinophils # 0.1 Basophils # 0.0 Nucleated Red Blood Cells # 0.0 Sodium Level 132 L Potassium Level 3.8 Chloride Level 100 Carbon Dioxide Level 25 Anion Gap 11 Blood Urea Nitrogen 14 Creatinine 0.56 Glucose Level 123 Calcium Level 9.4 Phosphorus Level 3.5 Magnesium Level 1.6 L Test 09/28/16 17:05 09/28/16 20:53 Bedside Glucose 111 113 Medications Medications Current Medications Ondansetron HCl (Zofran Inj) 4 mg Q6H PRN IV NAUSEA AND/OR VOMITING; Start at 01:30 Acetaminophen (Tylenol Tab) 650 mg Q6H PRN PO PAIN AND OR ELEVATED TEMP Last administered on 09/28/16 02:04; Admin Dose 650 MG; Start 09/26/16 at 01:30 Enoxaparin Sodium (Lovenox) 30 mg DAILY SC Last administered on 09/28/16 08:39 ; Admin Dose 30 MG; Start 09/27/16 at 09:00 Famotidine (Pepcid) 20 mg HS PO Last administered on 09/28/16 20:57; Admin Dose 20 MG; Start 09/27/16 at 21:00 Hydralazine HCl (Apresoline) 10 mg Q6H PRN IV SBP>160 Last administered on 09/28 08:37; Admin Dose 10 MG; Start 09/27/16 at 13:00 Miscellaneous Information 1 ea NOTE XX ; Start 09/27/16 at 13:30 Glucose (Glutose) 15 gm Q15M PRN PO DECREASED GLUCOSE; Start 09/27/16 at 13:30 Glucose (Glutose) 22.5 gm Q15M PRN PO DECREASED GLUCOSE; Start 09/27/16 at 13: 30 Dextrose (D50w Syringe) 25 ml Q15M PRN IV DECREASED GLUCOSE; Start 09/27/16 at 13:30 Dextrose (D50w Syringe) 50 ml Q15M PRN IV DECREASED GLUCOSE; Start 09/27/16 at 13:30 Glucagon (Glucagen) 1 mg Q15M PRN IM DECREASED GLUCOSE; Start 09/27/16 at 13:30 Glucose (Glutose) 15 gm Q15M PRN BUCCAL DECREASED GLUCOSE; Start 09/27/16 at 13 :30 Diagnostic Test (Pha) (Accu-Chek) 1 ea 02 XX ; Start 09/28/16 at 02:00 Metoprolol Tartrate (Lopressor) 25 mg BID PO Last administered on 09/28/16 20: 57; Admin Dose 25 MG; Start 09/28/16 at 21:00 Aspirin (Halfprin) 81 mg DAILY PO Last administered on 09/28/16 16:57; Admin Dose 81 MG; Start 09/28/16 at 16:00 VILMA LASSITER MD Sep 28, 2016 23:23
[2016-09-28] MEDS ORDERED: MAGNESIUM SULFATE 2 GM/50 ML 50 ML IVPB ONE (23:30)
[2016-09-29] VITALS (10 sets, daily range): BP systolic 122–150; BP diastolic 69–80; PULSE 90–116; RESP 18–20
[2016-09-29] MEDS: ACCU-CHEK XX SCH ×6 (02:00→21:43)
[2016-09-29] MEDS: ACARBOSE 50 MG TAB PO SCH ×3 (08:48→17:11)
[2016-09-29] MEDS: ASPIRIN (EC) 81 MG TAB PO SCH (08:48)
[2016-09-29] MEDS: METOPROLOL 25 MG TAB PO SCH (08:49)
[2016-09-29] MEDS: ENOXAPARIN 30 MG/0.3 ML SYG SC SCH (08:53)
--- NOTE | 2016-09-29 14:29 | PN ---
Date/Time of Note Date/Time of Note DATE: 09/29/16 TIME: 14:27 Assessment/Plan VTE Prophylaxis VTE Prophylaxis Intervention: LMWH Lines/Catheters IV [facility] Saline Lock Urinary Cath still in place: No Assessment/Plan Assessment/Plan 1. Paroxysmal atrial fibrillation, h/o ablation therapy, metoprolol, normal range of TSH, awaiting for echocardiography 2. Hypoglycemia. Etiology unclear. improved, on acarbose 3. Dementia. Continue frequent reorientation. 4. Hypertension. metoprolol 5. Deep venous thrombosis prophylaxis with subcutaneous Lovenox. Subjective 24 Hr Interval Summary Free Text/Dictation no complaint. patient is demented. No aFIb overnight. Exam/Review of Systems Vital Signs Vitals Vital Signs Date Time Temp Pulse Resp B/P Pulse Ox O2 Delivery O2 Flow Rate FiO2 09/29/16 12:00 102 09/29/16 11:53 98.2 18 122/69 98 09/28/16 01:30 Room Air Intake and Output 09/28/16 09/28/16 09/29/16 15:00 23:00 07:00 Intake Total 800 ml 75 ml Balance 800 ml 75 ml Exam Constitutional: alert, well developed Psych: nl mood/affect, no complaints Head: atraumatic, normocephalic Eyes: EOMI, nl conjunctiva, nl lids ENMT: nl external ears & nose, nl lips & teeth, nl nasal mucosa & septum Neck: non-tender, supple Respiratory: clear to auscultation, normal air movement, No congested cough, No crackles/rales, No diminished breath sounds, No intercostal retraction, No labored breathing, No other, No respirations, No tactile fremitus, No wheezing Cardiovascular: nl pulses, regular rate and rhythm, No S3, No S4, No bruits, No diastolic murmur, No edema, No gallop, No irregular rhythm, No jugular venous distention (JVD), No murmurs/extra sounds, No other, No rub, No systolic murmur Gastrointestinal: nl liver, spleen, non-tender, soft, No ascites, No bowel sounds, No distended, No firm, No hepatomegaly, No mass , No other, No rebound or guarding, No splenomegaly, No surgical scars, No tender Musculoskeletal: nl extremities to inspection Extremities: normal pulses, No calf tenderness, No clubbing, No cyanosis, No edema, No other, No palpable cord, No pitting pedal edema, No tenderness 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, nl speech, nl strength Skin: nl turgor Lymph: nl lymph nodes Results Result Diagram: 09/28/16 0601 09/28/16 0601 Results 24 hrs Laboratory Tests Test 09/28/16 17:05 09/28/16 20:53 09/29/16 07:42 09/29/16 08:37 Bedside Glucose 111 113 93 Magnesium Level 2.3 Test 09/29/16 11:37 Bedside Glucose 119 Medications Medications Current Medications Ondansetron HCl (Zofran Inj) 4 mg Q6H PRN IV NAUSEA AND/OR VOMITING; Start at 01:30 Acetaminophen (Tylenol Tab) 650 mg Q6H PRN PO PAIN AND OR ELEVATED TEMP Last administered on 09/28/16 02:04; Admin Dose 650 MG; Start 09/26/16 at 01:30 Enoxaparin Sodium (Lovenox) 30 mg DAILY SC Last administered on 09/29/16 08:53 ; Admin Dose 30 MG; Start 09/27/16 at 09:00 Famotidine (Pepcid) 20 mg HS PO Last administered on 09/28/16 20:57; Admin Dose 20 MG; Start 09/27/16 at 21:00 Hydralazine HCl (Apresoline) 10 mg Q6H PRN IV SBP>160 Last administered on 09/28 08:37; Admin Dose 10 MG; Start 09/27/16 at 13:00 Miscellaneous Information 1 ea NOTE XX ; Start 09/27/16 at 13:30 Glucose (Glutose) 15 gm Q15M PRN PO DECREASED GLUCOSE; Start 09/27/16 at 13:30 Glucose (Glutose) 22.5 gm Q15M PRN PO DECREASED GLUCOSE; Start 09/27/16 at 13: 30 Dextrose (D50w Syringe) 25 ml Q15M PRN IV DECREASED GLUCOSE; Start 09/27/16 at 13:30 Dextrose (D50w Syringe) 50 ml Q15M PRN IV DECREASED GLUCOSE; Start 09/27/16 at 13:30 Glucagon (Glucagen) 1 mg Q15M PRN IM DECREASED GLUCOSE; Start 09/27/16 at 13:30 Glucose (Glutose) 15 gm Q15M PRN BUCCAL DECREASED GLUCOSE; Start 09/27/16 at 13 :30 Diagnostic Test (Pha) (Accu-Chek) 1 02 XX ; Start 09/28/16 at 02:00 Aspirin (Halfprin) 81 mg DAILY PO Last administered on 09/29/16t 08:48; Admin Dose 81 MG; Start 09/28/16 at 16:00 Metoprolol Succinate (Toprol Xl) 50 mg DAILY PO ; Start 09/29/16 at 14:30; Status PARMJIT HENSON MD Sep 29, 2016 14:29
[2016-09-29] MEDS: METOPROLOL (XL) 50 MG TAB PO SCH (15:23)
--- NOTE | 2016-09-29 18:17 | RADRPT ---
Echocardiogram Report Patient Name: NIDIA HANSON Gender: Female Date: 1935 Study Date: 29-Sep-2016 Workgroup Leader: [facility] Location: [id number] Ref. Physician: PARMJIT CROW Quality: Good Procedures: Transthoracic echocardiogram with complete 2D, M-Mode, and doppler examination. Indications: Atrial Fibrillation. 2D/M Mode Doppler Measurement Value Normal Ranges Measurement Value Normal Ranges LVIDd 2D 3.3 3.5 - 5.6 cm AV Peak Flaco 1.1 m/sec LVIDs 2D 2.2 2.1 - 4.1 cm AV Peak PG 4.5 mmHg LVPWd 2D 1.1 0.6 - 1.1 cm AI Peak PG 23.7 mmHg IVSd 2D 1.1 0.6 - 1.1 cm AI Peak Flaco 2.4 m/sec AoR Diam 2D 2.1 2.0 - 3.7 cm AI PHT 472.0 msec EDV 2D 44.4 cm3 LVOT Peak Flaco 1.0 m/sec ESV 2D 11.2 cm3 LVOT Peak PG 4.1 mmHg MV E Peak Flaco 0.6 m/sec MV A Peak Flaco 1.1 m/sec MV E/A 0.5 MV Decel Time 107 msec MV Decel Harvey 5 MV E/A 0.5 Findings Left Ventricle: Normal left ventricular systolic function. Normal left ventricular cavity size. Sigmoid septum. Ejection fraction is visually estimated at 65 %. Tissue Doppler/Mitral Doppler indices are consistent with impaired relaxation (Stage I diastolic dysfunction). Right Ventricle: Normal right ventricular size. Normal right ventricular systolic function. Left Atrium: The left atrium is normal in size. Right Atrium: The right atrium is normal in size. Mitral Valve: Mild mitral leaflet calcification. Trace mitral regurgitation. Aortic Valve: No hemodynamically significant aortic stenosis by doppler. Aortic cusps appear mildly calcified. Mild aortic valve regurgitation. Tricuspid Valve: Tricuspid valve not well visualized. There is trace tricuspid regurgitation. Pericardium: Normal pericardium with no significant pericardial effusion. Aorta: Normal aortic root. IVC: Normal size and normal respiratory collapse consistent with normal right atrial pressure. Conclusions Normal left ventricular systolic function. Normal left ventricular cavity size. Sigmoid septum. Ejection fraction is visually estimated at 65 %. Tissue Doppler/Mitral Doppler indices are consistent with impaired relaxation (Stage I diastolic dysfunction). Normal right ventricular size. Normal right ventricular systolic function. The left atrium is normal in size. The right atrium is normal in size. No hemodynamically significant aortic stenosis by doppler. Aortic cusps appear mildly calcified. Mild aortic valve regurgitation. No significant valvular stenosis or regurgitation seen of remaining visualized valves. Normal pericardium with no significant pericardial effusion. Electronically Signed By: Bradly Olivia 29-Sep-2016 18:17:10 -0700 Patient Name: NIDIA HANSON Study Date: 29-Sep-[id number]
--- NOTE | 2016-09-29 18:20 | CONS ---
Date/Time of Note Date/Time of Note DATE: 09/29/16 TIME: 18:18 Assessment/Plan Assessment/Plan Additional Assessment/Plan Paroxysmal atrial fibrillation/atrial tachycardia Preserved ejection fraction Hypoglycemia -Telemetry reviewed with brief episodes of paroxysmal atrial fibrillation and atrial tachycardia noted. Overall remains in sinus rhythm. Magnesium supplementation as already been ordered. Maintain potassium above 4.0 and magnesium above 2.0. Continue beta-nithin as heart rate and blood pressure permits. Consultation Date/Type/Reason Admit Date/Time Sep 25, 2016 at 21:25 Initial Consult Date 09/26/16 Type of Consultation: cv Referring Provider: TERRI BOYCE 24 HR Interval Summary Free Text/Dictation Patient seen and examined. Denies palpitations, chest pain or shortness of breath Exam/Review of Systems Vital Signs Vitals Vital Signs Date Time Temp Pulse Resp B/P Pulse Ox O2 Delivery O2 Flow Rate FiO2 09/29/16 16:00 116 09/29/16 15:19 97.7 18 150/72 98 09/28/16 01:30 Room Air Intake and Output 09/28/16 09/28/16 09/29/16 15:00 23:00 07:00 Intake Total 800 ml 75 ml Balance 800 ml 75 ml Exam Follows commands, no apparent distress Constitutional: alert, oriented Head: normocephalic Neck: supple Respiratory: other (Coarse breath sounds bilaterally, no wheezing) Cardiovascular: other (S1-S2 heard), regular rate and rhythm Gastrointestinal: bowel sounds, non-tender, soft Extremities: edema Results Result Diagram: 09/28/16 0601 09/28/16 0601 Results 24 hrs Laboratory Tests Test 09/28/16 20:53 09/29/16 07:42 09/29/16 08:37 09/29/16 11:37 Bedside Glucose 113 93 119 Magnesium Level 2.3 Test 09/29/16 17:10 Bedside Glucose 106 Medications Medications Current Medications Ondansetron HCl (Zofran Inj) 4 mg Q6H PRN IV NAUSEA AND/OR VOMITING; Start at 01:30 Acetaminophen (Tylenol Tab) 650 mg Q6H PRN PO PAIN AND OR ELEVATED TEMP Last administered on 09/28/16t 02:04; Admin Dose 650 MG; Start 09/26/16 at 01:30 Enoxaparin Sodium (Lovenox) 30 mg DAILY SC Last administered on 09/29/16 08:53 ; Admin Dose 30 MG; Start 09/27/16 at 09:00 Famotidine (Pepcid) 20 mg HS PO Last administered on 09/28/16 20:57; Admin Dose 20 MG; Start 09/27/16 at 21:00 Hydralazine HCl (Apresoline) 10 mg Q6H PRN IV SBP>160 Last administered on 09/28 08:37; Admin Dose 10 MG; Start 09/27/16 at 13:00 Miscellaneous Information 1 ea NOTE XX ; Start 09/27/16 at 13:30 Glucose (Glutose) 15 gm Q15M PRN PO DECREASED GLUCOSE; Start 09/27/16 at 13:30 Glucose (Glutose) 22.5 gm Q15M PRN PO DECREASED GLUCOSE; Start 09/27/16 at 13: 30 Dextrose (D50w Syringe) 25 ml Q15M PRN IV DECREASED GLUCOSE; Start 09/27/16 at 13:30 Dextrose (D50w Syringe) 50 ml Q15M PRN IV DECREASED GLUCOSE; Start 09/27/16 at 13:30 Glucagon (Glucagen) 1 mg Q15M PRN IM DECREASED GLUCOSE; Start 09/27/16 at 13:30 Glucose (Glutose) 15 gm Q15M PRN BUCCAL DECREASED GLUCOSE; Start 09/27/16 at 13 :30 Diagnostic Test (Pha) (Accu-Chek) 1 ea 02 XX ; Start 09/28/16 at 02:00 Aspirin (Halfprin) 81 mg DAILY PO Last administered on 09/29/16 08:48; Admin Dose 81 MG; Start 09/28/16 at 16:00 Metoprolol Succinate (Toprol Xl) 50 mg DAILY PO Last administered on 09/29/16 15:23; Admin Dose 50 MG; Start 09/29/16 at 14:30 Bradly Olivia DO Sep 29, 2016 18:20
--- NOTE | 2016-09-29 19:15 | CONS ---
Date/Time of Note Date/Time of Note DATE: 09/29/16 TIME: 19:12 Assessment/Plan Assessment/Plan Problems: (1) Hypoglycemia Status: Acute Comment: Ongoing euglycemia on acarbose. D/w primary team. Agree not to fast pt. at this time. If hypoglycemia recurs after d/c home, pt. will need fast to r/o for insulinoma. Ok for d/c from endo standpoint. Consultation Date/Type/Reason Admit Date/Time Sep 25, 2016 at 21:25 Initial Consult Date 09/26/16 Type of Consultation: Endocrinology Reason for Consultation Hypoglycemia Referring Provider: TERRI BOYCE 24 HR Interval Summary Constitutional: no complaints Exam/Review of Systems Vital Signs Vitals VS - Last 72 Hours, by Label Date Time Temp Pulse Resp B/P Pulse Ox O2 Delivery O2 Flow Rate FiO2 09/29/16 16:00 116 09/29/16 15:19 97.7 110 18 150/72 98 09/29/16 12:00 102 09/29/16 11:53 98.2 86 18 122/69 98 09/29/16 08:00 95 09/29/16 07:28 98.2 102 18 135/76 96 09/29/16 04:20 90 09/29/16 04:00 97.6 101 18 133/80 98 09/29/16 00:13 98.6 113 20 124/72 97 09/29/16 00:13 91 09/28/16 20:16 98.6 110 18 150/72 97 09/28/16 20:14 112 09/28/16 16:00 110 09/28/16 15:59 98.2 111 20 151/77 97 09/28/16 12:00 110 09/28/16 11:58 98.3 110 20 159/74 97 09/28/16 08:00 94 09/28/16 07:41 98.1 98 20 166/92 98 09/28/16 04:00 100 09/28/16 03:56 98.3 109 19 137/69 96 09/28/16 01:30 105 18 152/68 Room Air 09/28/16 00:00 110 09/28/16 00:00 96.8 111 18 164/80 95 09/27/16 21:00 102 20 149/70 Room Air 09/27/16 20:02 130 09/27/16 19:51 98.3 108 21 171/79 98 09/27/16 18:00 72 156/64 09/27/16 16:08 98.0 79 20 164/87 98 09/27/16 16:03 114 09/27/16 12:03 110 09/27/16 11:55 99.0 108 20 157/72 98 09/27/16 08:00 94 09/27/16 07:42 98.6 97 20 157/74 98 09/27/16 04:29 98.4 98 18 164/78 95 09/27/16 04:18 101 09/27/16 00:13 92 09/27/16 00:00 98.2 100 17 153/ 96 09/26/16 20:10 110 09/26/16 20:00 99.1 105 17 145/69 97 Vital Signs Date Time Temp Pulse Resp B/P Pulse Ox O2 Delivery O2 Flow Rate FiO2 09/29/16 16:00 116 09/29/16 15:19 97.7 18 150/72 98 09/28/16 01:30 Room Air Intake and Output 09/28/16 09/28/16 09/29/16 15:00 23:00 07:00 Intake Total 800 ml 75 ml Balance 800 ml 75 ml Exam Constitutional: alert, well developed Psych: nl mood/affect, no complaints Respiratory: clear to auscultation, normal air movement Cardiovascular: nl pulses, regular rate and rhythm, No edema, No murmurs/extra sounds, No rub Gastrointestinal: bowel sounds, nl liver, spleen, non-tender, soft, No mass, No rebound or guarding Musculoskeletal: nl extremities to inspection Extremities: normal pulses, No clubbing, No cyanosis, No edema 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, nl mental status, nl speech, nl strength Additional Comments Bedside Glucose - 72 Hours Test 09/26/16 20:41 09/27/16 00:21 09/27/16 05:27 09/27/16 08:10 Bedside Glucose 94mg/dL (70-220) 134mg/dL (70-220) 123mg/dL (70-220) 123mg/dL (70-220) Test 09/27/16 12:28 09/27/16 17:10 09/27/16 20:28 09/28/16 01:52 Bedside Glucose 128mg/dL (70-220) 133mg/dL (70-220) 190mg/dL (70-220) 134mg/dL (70-220) Test 09/28/16 08:00 09/28/16 11:30 09/28/16 17:05 09/28/16 20:53 Bedside Glucose 110mg/dL (70-220) 110mg/dL (70-220) 111mg/dL (70-220) 113mg/dL (70-220) Test 09/29/16 08:37 09/29/16 11:37 09/29/16 17:10 Bedside Glucose 93mg/dL (70-220) 119mg/dL (70-220) 106mg/dL (70-220) Results Result Diagram: 09/28/16 0609/28/16 0601 Results 24 hrs Laboratory Tests Test 09/28/16 20:53 09/29/16 07:42 09/29/16 08:37 09/29/16 11:37 Bedside Glucose 113 93 119 Magnesium Level 2.3 Test 09/29/16 17:10 Bedside Glucose 106 Medications Medications Current Medications Ondansetron HCl (Zofran Inj) 4 mg Q6H PRN IV NAUSEA AND/OR VOMITING; Start at 01:30 Acetaminophen (Tylenol Tab) 650 mg Q6H PRN PO PAIN AND OR ELEVATED TEMP Last administered on 09/28/16 02:04; Admin Dose 650 MG; Start 09/26/16 at 01:30 Enoxaparin Sodium (Lovenox) 30 mg DAILY SC Last administered on 09/29/16 08:53 ; Admin Dose 30 MG; Start 09/27/16 at 09:00 Famotidine (Pepcid) 20 mg HS PO Last administered on 09/28/16 20:57; Admin Dose 20 MG; Start 09/27/16 at 21:00 Hydralazine HCl (Apresoline) 10 mg Q6H PRN IV SBP>160 Last administered on 09/28 08:37; Admin Dose 10 MG; Start 09/27/16 at 13:00 Miscellaneous Information 1 ea NOTE XX ; Start 09/27/16 at 13:30 Glucose (Glutose) 15 gm Q15M PRN PO DECREASED GLUCOSE; Start 09/27/16 at 13:30 Glucose (Glutose) 22.5 gm Q15M PRN PO DECREASED GLUCOSE; Start 09/27/16 at 13: 30 Dextrose (D50w Syringe) 25 ml Q15M PRN IV DECREASED GLUCOSE; Start 09/27/16 at 13:30 Dextrose (D50w Syringe) 50 ml Q15M PRN IV DECREASED GLUCOSE; Start 09/27/16 at 13:30 Glucagon (Glucagen) 1 mg Q15M PRN IM DECREASED GLUCOSE; Start 09/27/16 at 13:30 Glucose (Glutose) 15 gm Q15M PRN BUCCAL DECREASED GLUCOSE; Start 09/27/16 at 13 :30 Diagnostic Test (Pha) (Accu-Chek) 1 02 XX ; Start 09/28/16 at 02:00 Aspirin (Halfprin) 81 mg DAILY PO Last administered on 09/29/16 08:48; Admin Dose 81 MG; Start 09/28/16 at 16:00 Metoprolol Succinate (Toprol Xl) 50 mg DAILY PO Last administered on 09/29/16 15:23; Admin Dose 50 MG; Start 09/29/16 at 14:30 MARY RAGLAND MD Sep 29, 2016 19:14
[2016-09-29] MEDS: FAMOTIDINE 20 MG TAB PO SCH (21:27)
[2016-09-30] VITALS (8 sets, daily range): BP systolic 137–155; BP diastolic 71–101; PULSE 81–108; RESP 18–19
[2016-09-30] MEDS: ACCU-CHEK XX SCH ×3 (07:30→17:08)
[2016-09-30 07:47] LABS: ADD SCAN DIFF NO
[2016-09-30 07:55] LABS: BASOPHILS % 0.3 % (0.0-2.0); EOSINOPHILS # 0.2 10^3/ul (0.0-0.5); EOSINOPHILS % 1.4 % (0.0-7.0); HEMATOCRIT 38.7 % (37.0-47.0); HEMOGLOBIN 12.6 g/dl (12.0-16.0); LYMPHOCYTES # 1.1 10^3/ul (0.8-2.9); LYMPHOCYTES % 10.7 % (15.0-51.0); MEAN CORPUSCULAR HEMOGLOBIN 28.8 pg (29.0-33.0); MEAN CORPUSCULAR HGB CONC 32.6 g/dl (32.0-37.0); MEAN CORPUSCULAR VOLUME 88.4 fl (82.0-101.0); MEAN PLATELET VOLUME 9.2 fl (7.4-10.4); MONOCYTE # 0.8 10^3/ul (0.3-0.9); MONOCYTES % 7.2 % (0.0-11.0); NEUTROPHIL # 8.4 10^3/ul (1.6-7.5); PLATELET COUNT 325 10^3/UL (140-415); RED BLOOD COUNT 4.38 10^6/ul (4.20-5.40); RED CELL DISTRIBUTION WIDTH 13.5 % (11.5-14.5); WHITE BLOOD COUNT 10.4 10^3/ul (4.8-10.8)
[2016-09-30 08:04] LABS: CALCIUM 9.8 mg/dl (8.4-10.2); CREATININE 0.78 mg/dl (0.44-1.00)
[2016-09-30] MEDS: ASPIRIN (EC) 81 MG TAB PO SCH (08:51)
[2016-09-30] MEDS: ACARBOSE 50 MG TAB PO SCH ×3 (08:51→17:09)
[2016-09-30] MEDS: METOPROLOL (XL) 50 MG TAB PO SCH (08:51)
[2016-09-30] MEDS: ENOXAPARIN 30 MG/0.3 ML SYG SC SCH (08:53)
[2016-09-30] MEDS ORDERED: METO50TA16 PO (16:25)
[2016-09-30] MEDS ORDERED: ASPI-664 PO (16:25)
[2016-09-30] MEDS ORDERED: ACAR50TA9 PO (16:31)
--- NOTE | 2016-09-30 16:40 | DS ---
Date/Time of Note Date/Time of Note DATE: 09/30/16 TIME: 16:28 Discharge Summary Admission/Discharge Info Admit Date/Time Sep 25, 2016 at 21:25 Discharge Date/Time Final Diagnosis 1. Paroxysmal atrial fibrillation, h/o ablation therapy, tropol XL with aspirin , follow up with cardiology 2. Hypoglycemia. Etiology unclear. improved 3. Dementia. Continue frequent reorientation. 4. Hypertension. toprol XL Patient Condition: Stable Hospital Course The patient is an 81-year-old female with no significant past medical history who was transferred from a daycare center for altered mentation and weakness. Reportedly, the patient appeared more weaker than usual and had an acute onset of altered mentation. When EMS arrived, her blood glucose was in the 30s, for which she was given IV dextrose. When the patient appeared in the ER, she was stable and answering questions appropriately but she stated she did not remember what happened when she was being brought to the ER, but prior to that, she stated she was feeling her usual normal self. Note that the patient is [place] speaking, so information is obtained through translation. iN the ER her glucose on the BMP was 87, but repeat point of care glucose was 27 for which she was given D50 and then placed on IV fluid with dextrose. Later on tonight while she was still in the ER, her blood glucose initially went up to 127, then dropped to 38, so it has been fluctuating, but the past 2 readings have been 141 and 106. The patient does not take any medication, so no antidiabetic medication including insulin was given to the patient. She denied any chest pain, shortness of breath, abdominal pain, lightheadedness, dizziness. For hypoglycemia work up, TSH, LFTs, cortisol, C-peptide, and insulin levels are unremarkable. Patient is put on precose and she has been euglycemia. Patient had severe runs of atrial fibrillation with RVR. Echocardiography is unremarkable. She is on toprol and aspirin. Discussed with Dr. Olivia. She will follow up with cardiology outpatient. Home Meds Active Scripts Aspirin* (Aspirin* EC) 81 Mg Tablet.dr, 81 MG PO DAILY for 30 Days Prov:PARMJIT CROW MD 09/30/16 Metoprolol Succinate* (Toprol XL*) 50 Mg Tab.er.24h, 50 MG PO DAILY for 30 Days Prov:PARMJIT CROW MD 09/30/16 Follow-up Plan cardiology in one week PCP in one week Pending Labs Laboratory Tests Test 09/29/16 17:10 09/29/16 21:28 09/30/16 07:09 09/30/16 08:50 Bedside Glucose 106mg/dL (70-220) 138mg/dL (70-220) 120mg/dL (70-220) White Blood Count 10.410^3/ul (4.8-10.8) Red Blood Count 4.3810^6/ul (4.20-5.40) Hemoglobin 12.6g/dl (12.0-16.0) Hematocrit 38.7% (37.0-47.0) Mean Corpuscular Volume 88.4fl (82.0-101.0) Mean Corpuscular Hemoglobin 28.8pg (29.0-33.0) Mean Corpuscular Hemoglobin Concent 32.6g/dl (32.0-37.0) Red Cell Distribution Width 13.5% (11.5-14.5) Platelet Count 38272^3/UL (140-415) Mean Platelet Volume 9.2fl (7.4-10.4) Neutrophils % 80.0% (39.0-77.0) Lymphocytes % 10.7% (15.0-51.0) Monocytes % 7.2% (0.0-11.0) Eosinophils % 1.4% (0.0-7.0) Basophils % 0.3% (0.0-2.0) Nucleated Red Blood Cells % 0.0/100WBC (0.0-0.0) Neutrophils # 8.410^3/ul (1.6-7.5) Lymphocytes # 1.110^3/ul (0.8-2.9) Monocytes # 0.810^3/ul (0.3-0.9) Eosinophils # 0.210^3/ul (0.0-0.5) Basophils # 0.010^3/ul (0.0-0.1) Nucleated Red Blood Cells # 0.010^3/ul (0.0-0.0) Sodium Level 133mmol/L (135-144) Potassium Level 4.0mmol/L (3.5-5.1) Chloride Level 97mmol/L (97-110) Carbon Dioxide Level 27mmol/L (21-31) Anion Gap 13 (8-16) Blood Urea Nitrogen 24mg/dl (7-20) Creatinine 0.78mg/dl (0.44-1.00) Glucose Level 160mg/dl (70-220) Calcium Level 9.8mg/dl (8.4-10.2) Magnesium Level 2.0mg/dl (1.7-2.5) Test 09/30/16 12:45 Bedside Glucose 125mg/dL (70-220) PARMJIT CROW MD Sep 30, 2016 16:38
== END 2016-09-30 18:32 | disposition home or self-care (01) | DRG 642 ==
LOC: E/R 17:46 → MS4 21:25
PROVIDERS: ADMIT Internal Medicine; ATTEND Internal Medicine
DX: E88.81 Metabolic syndrome and other insulin resistance (principal); I48.0 Paroxysmal atrial fibrillation; F03.90 Unspecified dementia, unspecified severity, without behavioral disturbance, psychotic disturbance, mood disturbance, and anxiety; E16.2 Hypoglycemia, unspecified; I10 Essential (primary) hypertension; R62.7 Adult failure to thrive
CPT/HCPCS: 36415; 80048; 80053; 80061; 81003; 82533; 82962; 83036; 83525; 83690; 83735; 84100; 84443; 84484; 84681; 85025; 93005; 93306; 96374; 96375; 96376; J0360; J1650; J2405; J3475; J7030; J7042